=== PATIENT | male | born 1960 | race Caucasian/White ===

== ENCOUNTER → 2016-09-09 | Outpatient (CLI) | payer BC ==
[2016-03-22 11:00] VITALS: BP 138/83
[~2016-09-09] MED LIST: AMLO2.5T PO; AMLO5TAB2 PO; ATEN25TA PO; ATEN50TA PO; CONTRAST GIVEN MC PRN; IBUP-1007 PO; IBUP200T77 PO; IOHEXOL 240 MG/ML 50ML VIAL. PO ONE; IOHEXOL 300 MG/ML 100ML VIAL. IV ONE; LOSA1TAB17 PO; LOSA25TA4 PO; MULT-245 PO; MULT-496 PO; OMEP20CA9 PO; OMEP20TA PO; OXYC1TAB7 PO; OXYM-20 NS; OXYM30SP67 NS; SIMV10TA3 PO; SIMV20TA3 PO; TRAM50TA PO; [UNRECOGNIZED DRUG - CODE] PO
--- NOTE | 2016-09-09 11:45 | KCIC ---
CT CHEST PQRS STATEMENT One or more of the following individualized dose reduction techniques were utilized for this study:1.Automated exposure control. 2.Adjustment of the mA and/or kV according to patient size. 3.Use of iterative reconstruction technique Indication: Reason For Study Reason: HX COLON CA / Spl. Instructions: 100cc Omni 300 / History: Colon CA 2016, chemo tx Comparison: None Technique: Multiple contiguous axial images were obtained through the chest after administration of iodinated contrast. Coronal and sagittal reformations were created. Findings: There is no thoracic adenopathy. The heart size is normal. There is no pericardial effusion. The thoracic aorta is normal in caliber. There is no infiltrate. There is no pleural effusion. No pneumothorax. No destructive osseus lesion. Limited subdiaphragmatic evaluation is unremarkable. Impression: - Negative for thoracic adenopathy. - Negative for evidence of pulmonary metastatic disease. PQRS STATEMENT One or more of the following individualized dose reduction techniques were utilized for this study: 1.Automated exposure control. 2.Adjustment of the mA and/orkVaccording to patient size. 3.Use of iterative reconstruction technique. Indication:Reason For Study Reason: HX COLON CA / Spl. Instructions: 100cc Omni 300 / History: Colon CA 2016, chemo tx Comparison: 11/10/2006 Technique: multiple contiguous axial images were obtained through the abdomen and pelvis after intravenous administration of iodinated contrast. Coronal and sagittal reformations were created. Findings: The lung bases are clear. The heart size is normal. The liver is mildly enlarged. There is diffuse fatty infiltration of the hepatic parenchyma. No enhancing lesion is identified. The gallbladder is nondistended. The pancreas is unremarkable. The spleen is mildly enlarged measuring 13.1 centimeters in length the adrenal glands are unremarkable. The kidneys demonstrate no hydronephrosis or mass. The abdominal aorta is normal in caliber. There is no ascites or adenopathy. There is some mild indeterminate fat stranding just below the aortic bifurcation and along the left iliac vessels. The appendix is normal. The bowel loops are normal in caliber. The urinary bladder is within normal limits. No destructive osseous lesion is identified. There is a ventral abdominal wall hernia which contains nonobstructed loops of small bowel. Impression: - No abdominal pelvic adenopathy. - Diffuse fatty infiltration of the enlarged liver with no evidence for hepatic metastatic disease. - Splenomegaly. - Bowel containing ventral abdominal wall hernia with no evidence for incarceration. Electronically signed by: Hai Hartman (Sep 09, 2016 11:43:54)
== END | disposition home or self-care (01) ==
LOC: KCIC CT 08:37
PROVIDERS: ATTEND Internal Medicine Hematology & Oncology
DX: Z85.038 Personal history of other malignant neoplasm of large intestine (principal)
CPT/HCPCS: 71260; 74177; Q9966; Q9967

== ENCOUNTER → 2016-09-23 | Outpatient (CLI) | payer BC ==
[2016-03-22 11:00] VITALS: BP 138/83
[~2016-09-23] MED LIST changes: -CONTRAST GIVEN MC PRN; +DOCU50CA9 PO; -IOHEXOL 240 MG/ML 50ML VIAL. PO ONE; -IOHEXOL 300 MG/ML 100ML VIAL. IV ONE; +OXYC-244 PO
[2016-09-23 12:24] LABS: BASO # 0.1 x10^3/uL (0.0-0.2); BASO % 1 % (0-3); EOS % 5 % (0-3); HEMATOCRIT 44.1 % (39.0-53.0); HEMOGLOBIN 15.1 g/dL (13.0-17.5); LYMPH # 2.4 x10^3/uL (1.0-4.8); LYMPH % 29 % (24-48); MEAN CORPUSCULAR HEMOGLOBIN 33 pg (25-35); MEAN CORPUSCULAR HGB CONC 34 g/dL (31-37); MEAN CORPUSCULAR VOLUME 97 fL (79-100); MONO % 8 % (0-9); NEUT % 56 % (31-73); PLATELET COUNT 193 x10^3/uL (140-400); RED BLOOD COUNT 4.54 x10^6/uL (4.30-5.70); RED CELL DISTRIBUTION WIDTH 13.9 % (11.5-14.5); WHITE BLOOD COUNT 8.1 x10^3/uL (4.0-11.0)
[2016-09-23 12:32] LABS: ALBUMIN 3.8 g/dL (3.4-5.0); CALCIUM 9.1 mg/dL (8.5-10.1); POTASSIUM 3.7 mmol/L (3.5-5.1)
== END | disposition home or self-care (01) ==
LOC: SURGPAT 11:42
PROVIDERS: ATTEND Surgery
DX: Z01.812 Encounter for preprocedural laboratory examination (principal)
CPT/HCPCS: 36415; 80048; 82040; 85027

== ENCOUNTER 2016-09-29 06:09 | Day surgery (SDC) | payer BC ==
[~2016-09-29] VITALS: Ht 167.6 cm; Wt 114.8 kg
[~2016-09-29 06:09] MED LIST changes: +CEFAZOLIN 2GM PREMIX 50 ML IV PRN; -DOCU50CA9 PO; -OXYC-244 PO
[2016-09-29] MEDS ORDERED: ONDANSETRON PF 4 MG/2 ML VIAL. IV PRN (07:00)
[2016-09-29] MEDS ORDERED: LIDOCAINE 1% 1 ML SYRINGE. ID PRN (07:00)
[2016-09-29] MEDS ORDERED: FENTANYL PF 100 MCG/2 ML VIAL. IV PRN (07:00)
[2016-09-29] MEDS ORDERED: HYDROMORPHONE 2 MG/ML VIAL. IV PRN (07:00)
[2016-09-29] MEDS ORDERED: PROCHLORPERAZINE 10 MG/2 ML VIAL. IV PRN (07:00)
[2016-09-29] MEDS ORDERED: IV RINGERS,LACTATED 1000ML 1,000 ML IV SCH (07:00)
[2016-09-29] MEDS ORDERED: MORPHINE SULFATE 2 MG/ML DISP.SYRIN. IV PRN (07:00)
[2016-09-29] MEDS ORDERED: BUPIVAC MPF-EPI 0.5%-1:200000 30 ML VIAL. ONE (07:10)
[2016-09-29] MEDS ORDERED: LIDOCAINE 2% 100 MG/5 ML DISP.SYRIN. ONE (07:33)
[2016-09-29] MEDS ORDERED: ROCURONIUM 50 MG/5 ML VIAL. ONE ×2 (07:33→08:57)
[2016-09-29] MEDS ORDERED: PROPOFOL 20 ML IV ONE (07:33)
[2016-09-29] MEDS ORDERED: MIDAZOLAM HCL 2 MG/2 ML VIAL. ONE (07:33)
[2016-09-29] MEDS ORDERED: DEXAMETHASONE SOD PHOS 20 MG/5 ML VIAL. ONE (07:33)
[2016-09-29] MEDS ORDERED: ONDANSETRON PF 4 MG/2 ML VIAL. ONE (07:33)
[2016-09-29] MEDS ORDERED: FENTANYL PF 100 MCG/2 ML VIAL. ONE ×2 (07:33→08:20)
[2016-09-29] MEDS ORDERED: BUPIVAC MPF-EPI 0.5%-1:200000 30 ML VIAL. INJ ONE (08:19)
[2016-09-29] MEDS ORDERED: EPHEDRINE PF IN SALINE 50 MG/5 ML DISP.SYRIN. IV ONE (08:27)
[2016-09-29] MEDS ORDERED: PHENYLEPHRINE in 0.9% NACL PF 1 MG/10 ML DISP.SYRIN. IV ONE (08:31)
[2016-09-29] MEDS ORDERED: DESFLURANE 61 TO 120 MINUTES IH ONE (08:43)
[2016-09-29] MEDS ORDERED: NEOSTIGMINE METHYLSULFATE 5 MG/5 ML SYRINGE. ONE (09:34)
[2016-09-29] MEDS ORDERED: GLYCOPYRROLATE 1 MG/5 ML VIAL. ONE (09:35)
[2016-09-29] MEDS: FENTANYL PF 100 MCG/2 ML VIAL. IV PRN ×2 (10:15→10:30)
--- NOTE | 2016-09-29 10:22 | PDOC ---
BRIEF OPERATIVE NOTE Date: Sep 29, 2016 Pre-Op Diagnosis incarcerated ventral incisional hernia Post-Op Diagnosis same Procedure Performed primary repair, TRACEY Surgeon Dayne Anesthesia Type: General Blood Loss 50cc IV Fluid 1300cc Urine Output 725cc Specimens Obtained none Findings incarcerated small bowel Complications none Additional Remarks # [id number] ANA LILIA GREGORIO MD Sep 29, 2016 10:22
--- NOTE | 2016-09-29 10:25 | DISCH ---
DISCHARGE INSTRUCTIONS Condition on Discharge Condition on Discharge: Stable Activity After Discharge Activity Instructions for Disc: Activity as tolerated, Avoid exertion Driving Instructions after Dis: Do not drive (4-5 days) Diet after Discharge Diet after Discharge: Regular Wound Incision Care Other wound/incision instructi: november showthursday Follow-Up Follow up with: Dayne next week ANA LILIA GREGORIO MD Sep 29, 2016 10:25
[2016-09-29] MEDS ORDERED: OXYC-244 PO (10:44)
[2016-09-29] MEDS ORDERED: DOCU50CA9 PO (10:44)
[2016-09-29] MEDS ORDERED: OXYCODONE/APAP 7.5/325 TABLET. PO ONE (10:45)
[2016-09-29] MEDS ORDERED: KETOROLAC 15 MG/ML VIAL. IV ONE (10:45)
--- NOTE | 2016-09-29 11:34 | OP ---
DATE OF SURGERY: 09/29/2016 PREOPERATIVE DIAGNOSIS: Incarcerated ventral incisional hernia. POSTOPERATIVE DIAGNOSIS: Incarcerated ventral incisional hernia containing small bowel. PROCEDURES: 1. Primary repair. 2. Lysis of adhesions. SURGEON: Naun Gregorio M.D. ANESTHESIA: General endotracheal. ESTIMATED BLOOD LOSS: 50 mL. IV FLUIDS: 1300. URINE OUTPUT: 725. INDICATIONS: The patient is a 55-year-old status post colon cancer surgery. He developed an incisional hernia in his lower abdomen. He is brought for repair. OPERATIVE FINDINGS: The hernia contained small bowel, which was densely adherent to the hernia sac and abdominal wall. DESCRIPTION OF PROCEDURE: The patient brought to the operating suite, given a general endotracheal anesthetic. Gonzalez catheter placed to dependent drainage and the abdomen prepped and draped in usual sterile fashion. The old low midline incisional scar was partially excised including in the lips of very superficial skin. As we entered the hernia sac a small enterotomy was created in the small bowel. This was isolated, exposed by lysing adhesions and then closed in 2 layers using a running locked 3-0 chromic and mucosal layer followed by imbricating sutures of interrupted 3-0 Vicryl. Competency and patency was present at completion. We then freed the rest of the incarcerated contents by carefully lysing adhesions and reducing the hernia contents back into the abdominal cavity. The small midline defect was extended slightly inferiorly and some excess attenuated fascia was excised. The defect was then closed in a single layer using looped 0 PDS in running fashion, tied in the middle. A correct sponge count was obtained prior to the closure. A 19-Divehi round Rachid drain was left in the subcutaneous space for postoperative drainage secured to the skin with a silk stitch. A second sponge count was correct. Wound was closed with interrupted 3-0 Vicryl in subcutaneous tissue and a subcuticular 4-0 Monocryl with Steri-Strips for the skin. Sterile dressing applied. Abdominal binder placed. Gonzalez catheter removed. The patient was awakened from his anesthetic and taken to the recovery room in satisfactory condition. NAUN GREGORIO MD DR: MAURICE/josey JOB#: [id number] / [id number]
[2016-09-29 12:00] VITALS: BP 104/62
== END 2016-09-29 12:33 | disposition home or self-care (01) ==
LOC: SURG 06:09
PROVIDERS: ATTEND Surgery
DX: K43.0 Incisional hernia with obstruction, without gangrene (principal); I10 Essential (primary) hypertension; J44.9 Chronic obstructive pulmonary disease, unspecified; M19.90 Unspecified osteoarthritis, unspecified site; K21.9 Gastro-esophageal reflux disease without esophagitis; Z72.89 Other problems related to lifestyle; Z86.14 Personal history of Methicillin resistant Staphylococcus aureus infection
CPT/HCPCS: 49561; C1769; J0690; J0780; J1100; J1885; J2250; J2270; J2370; J2405; J2704; J2710; J3010; J3490; J7120

== ENCOUNTER → 2017-01-30 | Outpatient (CLI) | payer BC ==
[~2017-01-30] MED LIST changes: -CEFAZOLIN 2GM PREMIX 50 ML IV PRN; +DOCU50CA9 PO; -OMEP20TA PO; +OMEP20TA8 PO; +OXYC-327 PO
--- NOTE | 2017-01-30 13:24 | KCIC ---
Indication: Neck pain. Time of exam 12:28 PM Multiple views of the cervical spine were obtained. Curvature is normal. There is degenerative disc disease at the C5-6 and C6-7 levels, with disc space narrowing and marginal spurring. The prevertebral tissues are normal. The odontoid is intact. No fractures are seen. IMPRESSION: Lower cervical spondylosis. No acute bony abnormality is detected. Electronically signed by: Bryan Davidson MD (01/30/2017 1:20 PM) [id number]
--- NOTE | 2017-01-30 13:25 | KCIC ---
Indication: Low back pain. Time of exam 12:38 PM AP and lateral views were obtained. Curvature and alignment is normal. Vertebral body heights are well-maintained. No acute compression fracture is seen. There is degenerative disc disease with marginal osteophyte formation at the L2-3 and L3-4 levels. IMPRESSION: Lumbar spondylosis. No acute bony abnormality is detected. Electronically signed by: Bryan Davidson MD (01/30/2017 1:21 PM) [id number]
--- NOTE | 2017-01-30 13:26 | KCIC ---
Indication: Left shoulder pain and left arm numbness and tingling. Time of exam 12:24 PM 3 views of the left shoulder were obtained. The glenohumeral and acromioclavicular alignment are normal. There is mild degenerative change of the AC joint with inferior spurring. The acromiohumeral space is normal. No fracture or dislocation is detected. IMPRESSION: No acute bony abnormality is detected. Electronically signed by: Bryan Davidson MD (01/30/2017 1:22 PM) [id number]
--- NOTE | 2017-01-30 13:28 | KCIC ---
Indication: Right shoulder pain. Time of exam 12:26 PM The glenohumeral and acromioclavicular alignment are normal. There is hypertrophic degenerative change of the AC joint. No fracture or dislocation is identified. The acromiohumeral space is normal. IMPRESSION: Mild AC joint degenerative change. No acute bony abnormality is detected. Electronically signed by: Bryan Davidson MD (01/30/2017 1:24 PM) [id number]
== END | disposition home or self-care (01) ==
LOC: KCIC 12:05
PROVIDERS: ATTEND Physician Assistant
DX: M19.012 Primary osteoarthritis, left shoulder (principal); M19.011 Primary osteoarthritis, right shoulder
CPT/HCPCS: 72040; 72100; 73030

== ENCOUNTER → 2019-08-17 | Outpatient (CLI) | payer MEDICARE ==
[~2019-08-17] MED LIST changes: -AMLO2.5T PO; +AMLO2.5T5 PO; +AMLO5TAB10 PO; -AMLO5TAB2 PO; -LOSA1TAB17 PO; +LOSA1TAB22 PO; -LOSA25TA4 PO; +LOSA25TA54 PO; +OMEP20CA16 PO; -OMEP20CA9 PO; -OXYC-327 PO; +OXYC1TAB19 PO; +SIMV10TA15 PO; -SIMV10TA3 PO; +SIMV20TA18 PO; -SIMV20TA3 PO
--- NOTE | 2019-08-17 12:14 | KCIC ---
EXAM: Lumbar spine, 5 views. HISTORY: Pain. COMPARISON: 01/30/2017 FINDINGS: 5 views of the lumbar spine are obtained. There is no listhesis. The vertebral tello are normal in height. There is degenerative endplate remodeling with anterior spurring primarily at the mid lumbar levels and lower thoracic levels. There is multilevel facet arthropathy. IMPRESSION: 1. Multilevel degenerative change. This is not significantly changed compared to the prior exam. 2. No acute osseous finding. Electronically signed by: Tamara Lopez MD (08/17/2019 12:12 PM) [facility] [place]
--- NOTE | 2019-08-17 12:49 | KCIC ---
EXAM: Cervical spine, 7 views. HISTORY: Pain. COMPARISON: 01/30/2017 FINDINGS: 7 views of the cervical spine are obtained. There is no listhesis. There is degenerative endplate remodeling with anterior spurring primarily at C6-C7, and to a lesser extent, C5-C6. There is mild facet arthropathy at multiple levels. There is no fracture. IMPRESSION: 1. Degenerative change primarily at C6-C7, and to a lesser extent, C5-C6. This is not appreciably changed. 2. No acute osseous finding. Electronically signed by: Tamara Lopez MD (08/17/2019 12:45 PM) [facility] [place]
--- NOTE | 2019-08-17 16:45 | KCIC ---
EXAM: CHEST 2 VIEWS. HISTORY: Chronic bronchitis, colon cancer. COMPARISON: 02/08/2014, 09/09/2016. FINDINGS: Frontal and lateral views of the chest are obtained. There are no confluent infiltrates. There is no pneumothorax or pleural effusion. The heart is not enlarged. IMPRESSION: 1. No confluent infiltrates or suspicious nodules. CT is more sensitive for metastatic disease if there is persistent concern. Electronically signed by: Tony Johnson MD (08/17/2019 4:42 PM) [facility]
== END | disposition home or self-care (01) ==
LOC: KCIC 11:07
PROVIDERS: ATTEND Physician Assistant Medical
DX: M47.812 Spondylosis without myelopathy or radiculopathy, cervical region (principal); M47.816 Spondylosis without myelopathy or radiculopathy, lumbar region; J42 Unspecified chronic bronchitis; M12.88 Other specific arthropathies, not elsewhere classified, other specified site; Z85.038 Personal history of other malignant neoplasm of large intestine
CPT/HCPCS: 71046; 72050; 72110